=== PATIENT | female | born 1975 | race Hispanic/Latino ===

== ENCOUNTER 2022-05-26 13:37 | Emergency (ER) | payer OTHER ==
[2022-05-26 13:47] VITALS: BP 118/68
[2022-05-26] MEDS ORDERED: 0.9%NACL 1000ML 1,000 ML IV SCH (14:00)
[2022-05-26] MEDS ORDERED: TRAMADOL HCL 50 MG TABLET PO ONE (14:00)
[2022-05-26] MEDS ORDERED: KETOROLAC 15MG/ML VIAL (15MG/ML) IM ONE (14:00)
[2022-05-26] MEDS ORDERED: IBUP-1493 PO (14:54)
== END 2022-05-26 15:15 | disposition home or self-care (01) ==
LOC: EDBD 13:37 → EDH 13:37
DX: M25.562 Pain in left knee (principal); E11.9 Type 2 diabetes mellitus without complications; E78.00 Pure hypercholesterolemia, unspecified; I10 Essential (primary) hypertension; Z79.1 Long term (current) use of non-steroidal anti-inflammatories (NSAID)
CPT/HCPCS: 99284; 96360; 29505; 82948; 73552; 73562; 73590; 96372; 93005; J7030; J1885